=== PATIENT | female | born 1960 | race Caucasian/White ===

== ENCOUNTER 2019-06-22 23:44 | Emergency (ER) | payer BC ==
[~2019-06-22] VITALS: Ht 165.1 cm; Wt 106.4 kg
[2019-06-22] MEDS ORDERED: GLUCOPHAGE500 MG/TAB PO (23:49)
[2019-06-22] MEDS ORDERED: HYGROTON 2525 MG/TAB PO (23:50)
[2019-06-22] MEDS ORDERED: LOTENSIN20 M1 PO (23:50)
[2019-06-22] MEDS ORDERED: CELEXA 20MG20 MG/TA1 PO (23:51)
[2019-06-23 01:48] VITALS: BP 148/70
[2019-06-25 12:48] LABS: HEMATOCRIT 42.2 % (37.0-47.0); HEMOGLOBIN 14.1 g/dL (12.5-16.0); MEAN CELL VOLUME 85 fl (78-100); MEAN CORPUSCULAR HEMOGLOBIN 28 pg (27-31); MEAN CORPUSCULAR HGB CONC 33 g/dL (33-37); RED BLOOD COUNT 4.96 M/mm3 (4.10-5.30); WHITE BLOOD COUNT 15.2 K/mm3 (4.8-10.8)
[2019-06-25 12:49] LABS: EOS % 1.5 % (1.0-5.0); PLATELET COUNT 300 K/mm3 (130-400); RED CELL DISTRIBUTION WIDTH 13.8 % (11.5-14.5)
[2019-06-25 12:50] LABS: EOS # 0.2 (0.04-0.40); LYMPH# 2.5 (1.50-4.00); MONO # 1.3 (0.20-0.80); NEU # 11.1 (1.40-6.50)
[2019-06-25 12:51] LABS: D-DIMER 0.05 mg/L FEU (0.15-0.50); PARTIAL THROMBOPLASTIN TIME 19.9 SECONDS (21.0-32.0)
[2019-06-25 12:52] LABS: CARBON DIOXIDE 27 mmol/L (22-29); GLUCOSE 184 mg/dL (65-105); POTASSIUM 3.4 mmol/L (3.5-5.1); SODIUM 142 mmol/L (136-145)
[2019-06-25 12:53] LABS: ALBUMIN 4.3 g/dL (3.5-5.0); ALT/SGPT 40 U/L (0-55); AST-SGOT 39 U/L (5-34); CALCIUM 9.3 mg/dL (8.3-10.5); TOTAL BILIRUBIN 0.3 mg/dL (0.2-1.2); TOTAL PROTEIN 7.6 g/dL (6.4-8.3)
[2019-06-25 12:54] LABS: CKMB ISOENZYME 0.9 ng/mL (0.0-3.5)
[2019-06-25 12:55] LABS: TROPONIN-I < 0.03 ng/mL (<0.030)
== END 2019-06-23 01:48 | disposition home or self-care (01) ==
LOC: ED 23:44
PROVIDERS: Family Medicine
DX: R07.9 Chest pain, unspecified (principal); D72.829 Elevated white blood cell count, unspecified; E11.9 Type 2 diabetes mellitus without complications; F32.9 Major depressive disorder, single episode, unspecified; I10 Essential (primary) hypertension; F17.210 Nicotine dependence, cigarettes, uncomplicated; Z98.890 Other specified postprocedural states